=== PATIENT | female | born 1930 | race Caucasian/White ===

== ENCOUNTER 2016-05-16 15:21 | Inpatient (IN) | payer MEDICARE, OTHER ==
[2016-05-16] MEDS ORDERED: ACETAMINOPHEN 325 MG PO ONE (16:49)
[2016-05-16] MEDS ORDERED: HYDRALAZINE HYDROCHLORIDE 20 MG/ML SOL IV PRN (16:50)
[2016-05-16] MEDS: SODIUM CHLORIDE 0.9% 1000ML 1,000 ML IV SCH (17:00)
[2016-05-16 17:07] LABS: BASOPHILS % (AUTO) 0 % (0-3); EOSINOPHILS % (AUTO) 2 % (0-9); HEMATOCRIT 49 % (35-47); MEAN CORPUSCULAR HGB CONC 33.1 gm/dl (32.0-36.0); MEAN CORPUSCULAR VOLUME 85 fL (81-99); NEUTROPHILS % (AUTO) 78.3 % (37-80)
[2016-05-16 17:13] LABS: CALCIUM 8.9 mg/dl (8.5-10.1); POTASSIUM 3.9 mMol/L (3.5-5.1)
[2016-05-16] MEDS ORDERED: WARFARIN SODIUM 5 MG TAB PO SCH (18:15)
[2016-05-16] MEDS ORDERED: LABETALOL HYDROCHLORIDE 5 MG/ML SOL IV PRN ×3 (18:35→19:39)
[2016-05-16] MEDS ORDERED: OSELTAMIVIR PHOSPHATE 75 MG CAP PO ONE (20:00)
[2016-05-16] MEDS: CITALOPRAM 20 MG TAB PO SCH (20:47)
[2016-05-16] MEDS: HYDRALAZINE HCL 25 MG TAB PO SCH (20:52)
[2016-05-16] MEDS ORDERED: AMOXIL/CLAVULANATE 875/125 TAB PO SCH (21:00)
[2016-05-16] MEDS ORDERED: AUGMENTIN(FRIDGE) 400 MG/5 ML PO SCH (21:15)
[2016-05-16] MEDS: ALPRAZOLAM 0.25 MG TAB PO PRN (22:11)
[2016-05-16] MEDS ORDERED: ONDANSETRON HCL 4 MG TAB PO PRN (22:17)
[2016-05-17] MEDS: ACETAMINOPHEN 500 MG 500 MG TAB PO PRN ×2 (01:03→18:15)
[2016-05-17] MEDS: SODIUM CHLORIDE 0.9% 1000ML 1,000 ML IV SCH (01:08)
[2016-05-17] MEDS: LEVOTHYROXINE SODIUM 50 MCG TAB PO SCH (06:05)
[2016-05-17 07:23] LABS: CALCIUM 8.1 mg/dl (8.5-10.1); POTASSIUM 3.1 mMol/L (3.5-5.1)
[2016-05-17 07:27] LABS: BASOPHILS % (AUTO) 0 % (0-3); EOSINOPHILS % (AUTO) 1 % (0-9); HEMATOCRIT 44 % (35-47); MEAN CORPUSCULAR HGB CONC 34.4 gm/dl (32.0-36.0); MEAN CORPUSCULAR VOLUME 85 fL (81-99); MONOCYTES % (AUTO) 15.1 % (0-12); NEUTROPHILS % (AUTO) 66.6 % (37-80)
[2016-05-17] MEDS ORDERED: POTASSIUM CHLORIDE 2 MEQ/ML 40 MEQ, LIDOCAINE HCL 1% MDV 2 ML in SODIUM CHLORIDE 0.9% 5... IV ONE (08:16)
[2016-05-17] MEDS ORDERED: HYDRALAZINE HYDROCHLORIDE 10 MG TAB ONE (08:49)
[2016-05-17] MEDS: DILTIAZEM ER 120 MG C24 PO SCH (08:53)
[2016-05-17] MEDS: HYDRALAZINE HCL 25 MG TAB PO SCH (08:55)
[2016-05-17] MEDS: LOVASTATIN 10 MG TAB PO SCH (08:55)
[2016-05-17] MEDS: FUROSEMIDE 40 MG TAB PO SCH (08:56)
[2016-05-17] MEDS: POTASSIUM CHLORIDE 10 MEQ TER PO SCH (08:57)
[2016-05-17] MEDS ORDERED: POTASSIUM CHLORIDE 20 MEQ PO SCH (09:00)
[2016-05-17] MEDS ORDERED: POTASSIUM CHLORIDE 2 MEQ/ML SOL IV ONE (09:31)
[2016-05-17] MEDS ORDERED: LIDOCAINE HCL 1% MPF SOL ONE (09:31)
[2016-05-17] MEDS: ALBUTEROL NEB SOL 2.5MG/3ML 1 VIAL SOL NEB PRN ×2 (09:37→21:27)
[2016-05-17] MEDS: OSELTAMIVIR PHOSPHATE 75 MG CAP PO SCH ×3 (09:50→21:23)
[2016-05-17 09:59] LABS: APPEARANCE,URINE Clear; BILIRUBIN,URINE NEGATIVE (NEGATIVE); COLOR,URINE Yellow; GLUCOSE, URINE (UA) NEGATIVE (NEGATIVE); KETONES,URINE NEGATIVE (NEGATIVE); LEUKOCYTE ESTERASE ,URINE NEGATIVE (NEGATIVE); NITRATE,URINE NEGATIVE (NEGATIVE); OCCULT BLOOD,URINE NEGATIVE (NEG-TRACE); UROBILINOGEN,URINE 0.2 (0.2-1.0 EU)
[2016-05-17 10:15] LABS: RBC,URINE 0-1 (0-3AV/HPF); WBC,URINE 0-2 (0-5AV/HPF)
[2016-05-17] MEDS ORDERED: WARFARIN SODIUM 5 MG TAB PO SCH (18:00)
[2016-05-17] MEDS: HYDRALAZINE HYDROCHLORIDE 10 MG TAB PO SCH (21:20)
[2016-05-17] MEDS: CITALOPRAM 20 MG TAB PO SCH (21:22)
[2016-05-17] MEDS: ALPRAZOLAM 0.25 MG TAB PO PRN (21:27)
[2016-05-18] MEDS: LEVOTHYROXINE SODIUM 50 MCG TAB PO SCH (06:31)
[2016-05-18 07:36] LABS: BASOPHILS % (AUTO) 1 % (0-3); EOSINOPHILS % (AUTO) 2 % (0-9); HEMATOCRIT 48 % (35-47); MEAN CORPUSCULAR HGB CONC 32.7 gm/dl (32.0-36.0); MEAN CORPUSCULAR VOLUME 86 fL (81-99); MONOCYTES % (AUTO) 13.3 % (0-12); NEUTROPHILS % (AUTO) 59.4 % (37-80)
[2016-05-18 07:37] LABS: CALCIUM 8.4 mg/dl (8.5-10.1); POTASSIUM 3.1 mMol/L (3.5-5.1)
[2016-05-18] MEDS: ALBUTEROL NEB SOL 2.5MG/3ML 1 VIAL SOL NEB PRN (08:06)
[2016-05-18] MEDS ORDERED: POTASSIUM CHLORIDE 2 MEQ/ML 60 MEQ, LIDOCAINE HCL 1% MDV 2 ML in SODIUM CHLORIDE 0.9% 1... IV ONE (08:11)
[2016-05-18] MEDS ORDERED: OSELTAMIVIR PHOSPHATE 75 MG CAP PO SCH (09:00)
[2016-05-18] MEDS ORDERED: AMLODIPINE 5 MG TAB PO SCH ×2 (09:00)
[2016-05-18] MEDS: DILTIAZEM ER 120 MG C24 PO SCH (09:02)
[2016-05-18] MEDS: OSELTAMIVIR PHOSPHATE 75 MG CAP PO SCH ×2 (09:02→20:26)
[2016-05-18] MEDS: FUROSEMIDE 40 MG TAB PO SCH (09:03)
[2016-05-18] MEDS: HYDRALAZINE HYDROCHLORIDE 10 MG TAB PO SCH ×2 (09:03→20:23)
[2016-05-18] MEDS: LOVASTATIN 10 MG TAB PO SCH (09:03)
[2016-05-18] MEDS: POTASSIUM CHLORIDE 10 MEQ TER PO SCH (09:03)
[2016-05-18] MEDS: ALBUTEROL NEB SOL 2.5MG/3ML 1 VIAL SOL NEB SCH ×5 (09:28→23:51)
[2016-05-18] MEDS: SODIUM CHLORIDE 0.9% FLUSH 10 ML SOL IV SCH ×4 (09:33→23:51)
[2016-05-18] MEDS: ACETAMINOPHEN 500 MG 500 MG TAB PO PRN (16:38)
[2016-05-18] MEDS ORDERED: WARFARIN SODIUM 2.5 MG TAB PO SCH ×2 (18:00→18:08)
[2016-05-18] MEDS ORDERED: POTASSIUM CHLORIDE 10 MEQ TER PO ONE (19:33)
[2016-05-18] MEDS ORDERED: POTASSIUM CHLORIDE 2 MEQ/ML 20 MEQ, LIDOCAINE HCL 1% MDV 2 ML in SODIUM CHLORIDE 0.9% 2... IV ONE (19:36)
[2016-05-18] MEDS ORDERED: LIDOCAINE HCL 1% MPF SOL ONE (20:02)
[2016-05-18] MEDS ORDERED: POTASSIUM CHLORIDE 2 MEQ/ML SOL IV ONE (20:02)
[2016-05-18] MEDS: CITALOPRAM 20 MG TAB PO SCH (20:25)
[2016-05-18] MEDS: ALPRAZOLAM 0.25 MG TAB PO PRN (20:27)
[2016-05-18] MEDS: TIMOLOL MALEAT RIGHTEYE SCH (21:00)
[2016-05-18] MEDS: [UNRECOGNIZED DRUG - OTHER] RIGHTEYE SCH (21:00)
[2016-05-18] MEDS: DORZOLAMIDE HCL RIGHTEYE SCH (21:00)
[2016-05-19] MEDS: SODIUM CHLORIDE 0.9% FLUSH 10 ML SOL IV SCH ×3 (01:16→18:58)
[2016-05-19] MEDS: ALBUTEROL NEB SOL 2.5MG/3ML 1 VIAL SOL NEB SCH ×2 (04:49→09:10)
[2016-05-19] MEDS: LEVOTHYROXINE SODIUM 50 MCG TAB PO SCH (06:17)
[2016-05-19 07:22] LABS: BASOPHILS % (AUTO) 1 % (0-3); EOSINOPHILS % (AUTO) 2 % (0-9); HEMATOCRIT 44 % (35-47); MEAN CORPUSCULAR HGB CONC 33.6 gm/dl (32.0-36.0); MEAN CORPUSCULAR VOLUME 86 fL (81-99); NEUTROPHILS % (AUTO) 71.3 % (37-80)
[2016-05-19 07:29] LABS: CALCIUM 8.2 mg/dl (8.5-10.1); POTASSIUM 3.5 mMol/L (3.5-5.1)
[2016-05-19] MEDS: POTASSIUM CHLORIDE 10 MEQ TER PO SCH (09:46)
[2016-05-19] MEDS: HYDRALAZINE HYDROCHLORIDE 10 MG TAB PO SCH ×2 (09:48→21:12)
[2016-05-19] MEDS: OSELTAMIVIR PHOSPHATE 75 MG CAP PO SCH ×2 (09:51→21:13)
[2016-05-19] MEDS: LOVASTATIN 10 MG TAB PO SCH (09:52)
[2016-05-19] MEDS: FUROSEMIDE 40 MG TAB PO SCH (09:53)
[2016-05-19] MEDS: DORZOLAMIDE HCL RIGHTEYE SCH ×2 (09:53→21:14)
[2016-05-19] MEDS: TIMOLOL MALEAT RIGHTEYE SCH ×2 (09:53→21:14)
[2016-05-19] MEDS: [UNRECOGNIZED DRUG - OTHER] RIGHTEYE SCH ×2 (09:53→21:14)
[2016-05-19] MEDS: TRAVOPROST SOL RIGHTEYE SCH ×2 (09:56→21:15)
[2016-05-19] MEDS: DILTIAZEM ER 120 MG C24 PO SCH (09:58)
[2016-05-19] MEDS: PANTOPRAZOLE SODIUM 40 MG ECT PO SCH (10:01)
[2016-05-19] MEDS ORDERED: ALBUTEROL NEB SOL 2.5MG/3ML 1 VIAL SOL NEB PRN (10:02)
[2016-05-19] MEDS: ALBUTEROL/IPRATROPIUM 1 VIAL SOL INH SCH ×3 (10:02→21:10)
[2016-05-19] MEDS: SOLUMEDROL 125 MG/2 ML 125 MG/2 ML PDS IV SCH ×2 (10:30→21:14)
[2016-05-19] MEDS ORDERED: WARFARIN SODIUM 5 MG TAB PO SCH (18:00)
[2016-05-19] MEDS: CITALOPRAM 20 MG TAB PO SCH (21:12)
[2016-05-19] MEDS: ALPRAZOLAM 0.25 MG TAB PO PRN (21:13)
[2016-05-20] MEDS: SODIUM CHLORIDE 0.9% FLUSH 10 ML SOL IV SCH ×2 (04:56→09:17)
[2016-05-20] MEDS: ALBUTEROL/IPRATROPIUM 1 VIAL SOL INH SCH ×2 (05:05→08:55)
[2016-05-20] MEDS: LEVOTHYROXINE SODIUM 50 MCG TAB PO SCH (05:10)
[2016-05-20 07:18] LABS: CALCIUM 8.6 mg/dl (8.5-10.1); POTASSIUM 3.3 mMol/L (3.5-5.1)
[2016-05-20 08:11] VITALS: BP 153/78; TEMP 96.8
[2016-05-20] MEDS: OSELTAMIVIR PHOSPHATE 75 MG CAP PO SCH (08:43)
[2016-05-20] MEDS: DILTIAZEM ER 120 MG C24 PO SCH (08:43)
[2016-05-20] MEDS: POTASSIUM CHLORIDE 10 MEQ TER PO SCH (08:43)
[2016-05-20] MEDS: FUROSEMIDE 40 MG TAB PO SCH (08:44)
[2016-05-20] MEDS: LOVASTATIN 10 MG TAB PO SCH (08:44)
[2016-05-20] MEDS: PANTOPRAZOLE SODIUM 40 MG ECT PO SCH (08:44)
[2016-05-20] MEDS: TIMOLOL MALEAT RIGHTEYE SCH (08:49)
[2016-05-20] MEDS: DORZOLAMIDE HCL RIGHTEYE SCH (08:49)
[2016-05-20] MEDS: HYDRALAZINE HYDROCHLORIDE 10 MG TAB PO SCH (08:49)
[2016-05-20] MEDS: [UNRECOGNIZED DRUG - OTHER] RIGHTEYE SCH (08:49)
[2016-05-20] MEDS: SOLUMEDROL 125 MG/2 ML 125 MG/2 ML PDS IV SCH (09:07)
[2016-05-20 09:17] VITALS: PULSE 81; RESP 20
[2016-05-20 12:12] VITALS: O2SAT 91
== END 2016-05-20 11:30 | disposition swing bed (61) | DRG 194 ==
LOC: ED 15:21 → UNDOADMIN 17:06 → ACUTE CARE 17:06 → UNDODISIN 05-20 11:40
PROVIDERS: ADMIT Emergency Medicine; ATTEND Emergency Medicine
PROC: F01ZDFZ Gait and/or Balance Assessment using Assistive, Adaptive, Supportive or Protective Equipment (ICD-10-PCS; principal; 2016-05-18)
PROC: F01ZBZZ Bed Mobility Assessment (ICD-10-PCS; 2016-05-18)
PROC: F01ZCZZ Transfer Assessment (ICD-10-PCS; 2016-05-18)
PROC: F02Z1ZZ Dressing Assessment (ICD-10-PCS; 2016-05-18)
PROC: F02Z3ZZ Grooming/Personal Hygiene Assessment (ICD-10-PCS; 2016-05-18)
PROC: F02Z2ZZ Feeding/Eating Assessment (ICD-10-PCS; 2016-05-18)
DX: J09.X2 Influenza due to identified novel influenza A virus with other respiratory manifestations (principal); I16.9 Hypertensive crisis, unspecified; I48.91 Unspecified atrial fibrillation; Z79.01 Long term (current) use of anticoagulants; R35.0 Frequency of micturition; E87.6 Hypokalemia; R53.1 Weakness; R09.02 Hypoxemia
CPT/HCPCS: 36415; 71010; 71020; 80048; 81001; 84132; 85025; 85610; 87804; 94150; 94640; 94762; 96365; 99221; 99283; J0360; J2930; J3480; J7603; J7620; J2001

== ENCOUNTER 2016-05-20 10:27 | Inpatient (IN) | payer MEDICARE, OTHER ==
[2016-05-20] MEDS ORDERED: ACETAMINOPHEN 500 MG 500 MG TAB PO PRN (11:24)
[2016-05-20] MEDS ORDERED: MAGNESIUM HYDROXIDE 30 ML SUS PO PRN (11:24)
[2016-05-20] MEDS ORDERED: WARFARIN SODIUM 5 MG TAB PO SCH ×2 (11:30→18:00)
[2016-05-20] MEDS: ALBUTEROL/IPRATROPIUM 1 VIAL SOL INH SCH ×2 (15:05→19:45)
[2016-05-20] MEDS: METOPROLOL TARTRATE 5 MG/5 ML SOL IV PRN ×2 (15:43→17:32)
[2016-05-20] MEDS ORDERED: LISINOPRIL 5 MG TAB PO SCH (18:40)
[2016-05-20] MEDS: DORZOLAMIDE/TIMOLOL 200 DROP SOL RIGHTEYE SCH (21:06)
[2016-05-20] MEDS: CITALOPRAM 20 MG TAB PO SCH (21:07)
[2016-05-20] MEDS: HYDRALAZINE HCL 25 MG TAB PO SCH (21:07)
[2016-05-20] MEDS: POTASSIUM CHLORIDE 10 MEQ TER PO SCH (21:09)
[2016-05-20] MEDS: OSELTAMIVIR PHOSPHATE 75 MG CAP PO SCH (21:10)
[2016-05-20] MEDS: TRAVOPROST SOL RIGHTEYE SCH (21:12)
[2016-05-20] MEDS: ALPRAZOLAM 0.25 MG TAB PO PRN (21:25)
[2016-05-20] MEDS ORDERED: PATIENT EDUCATION 1 MISC PRN (21:36)
[2016-05-20] MEDS: SODIUM CHLORIDE 0.9% FLUSH 10 ML SOL IV SCH (21:55)
[2016-05-21] MEDS: ALBUTEROL/IPRATROPIUM 1 VIAL SOL INH SCH ×4 (02:31→21:24)
[2016-05-21] MEDS: SODIUM CHLORIDE 0.9% FLUSH 10 ML SOL IV SCH ×3 (06:25→21:24)
[2016-05-21] MEDS: LEVOTHYROXINE SODIUM 50 MCG TAB PO SCH (06:25)
[2016-05-21] MEDS: DILTIAZEM ER 120 MG C24 PO SCH (08:49)
[2016-05-21] MEDS: PANTOPRAZOLE SODIUM 40 MG ECT PO SCH (08:50)
[2016-05-21] MEDS: LOVASTATIN 10 MG TAB PO SCH (08:50)
[2016-05-21] MEDS: FUROSEMIDE 40 MG TAB PO SCH (08:50)
[2016-05-21] MEDS: OSELTAMIVIR PHOSPHATE 75 MG CAP PO SCH (08:50)
[2016-05-21] MEDS: DORZOLAMIDE/TIMOLOL 200 DROP SOL RIGHTEYE SCH ×2 (08:51→21:23)
[2016-05-21] MEDS: HYDRALAZINE HYDROCHLORIDE 10 MG TAB PO SCH ×2 (09:32→21:21)
[2016-05-21] MEDS: PREDNISONE 20 MG TAB PO SCH (09:32)
[2016-05-21] MEDS: LOSARTAN POTASSIUM 50 MG TAB PO SCH (09:32)
[2016-05-21] MEDS: POTASSIUM CHLORIDE 10 MEQ TER PO SCH ×2 (09:32→21:23)
[2016-05-21] MEDS: HYDRALAZINE HCL 25 MG TAB PO SCH (09:46)
[2016-05-21] MEDS ORDERED: WARFARIN SODIUM 2.5 MG TAB PO SCH ×2 (11:24→18:00)
[2016-05-21] MEDS ORDERED: ONDANSETRON 4 MG ODT BU PRN (14:33)
[2016-05-21] MEDS: CITALOPRAM 20 MG TAB PO SCH (21:22)
[2016-05-21] MEDS: TRAVOPROST SOL RIGHTEYE SCH (21:24)
[2016-05-21] MEDS: ALPRAZOLAM 0.25 MG TAB PO PRN (21:37)
[2016-05-22] MEDS: ALBUTEROL/IPRATROPIUM 1 VIAL SOL INH SCH ×4 (06:04→21:58)
[2016-05-22] MEDS: LEVOTHYROXINE SODIUM 50 MCG TAB PO SCH (06:52)
[2016-05-22] MEDS: SODIUM CHLORIDE 0.9% FLUSH 10 ML SOL IV SCH (06:53)
[2016-05-22] MEDS: HYDRALAZINE HYDROCHLORIDE 10 MG TAB PO SCH ×2 (08:05→21:57)
[2016-05-22] MEDS: DILTIAZEM ER 120 MG C24 PO SCH (08:05)
[2016-05-22] MEDS: LOSARTAN POTASSIUM 50 MG TAB PO SCH (08:06)
[2016-05-22] MEDS: POTASSIUM CHLORIDE 10 MEQ TER PO SCH ×2 (08:06→21:56)
[2016-05-22] MEDS: DORZOLAMIDE/TIMOLOL 200 DROP SOL RIGHTEYE SCH ×2 (08:06→21:57)
[2016-05-22] MEDS: LOVASTATIN 10 MG TAB PO SCH (08:07)
[2016-05-22] MEDS: PREDNISONE 20 MG TAB PO SCH (08:07)
[2016-05-22] MEDS: FUROSEMIDE 40 MG TAB PO SCH (08:07)
[2016-05-22] MEDS: PANTOPRAZOLE SODIUM 40 MG ECT PO SCH (08:08)
[2016-05-22] MEDS: ALPRAZOLAM 0.25 MG TAB PO PRN (21:56)
[2016-05-22] MEDS: TRAVOPROST SOL RIGHTEYE SCH (21:56)
[2016-05-22] MEDS: CITALOPRAM 20 MG TAB PO SCH (21:57)
[2016-05-23] MEDS: ALBUTEROL/IPRATROPIUM 1 VIAL SOL INH SCH ×4 (02:45→22:15)
[2016-05-23] MEDS: LEVOTHYROXINE SODIUM 50 MCG TAB PO SCH (07:15)
[2016-05-23] MEDS ORDERED: PREDNISONE 20 MG TAB PO SCH (09:00)
[2016-05-23] MEDS: POTASSIUM CHLORIDE 10 MEQ TER PO SCH ×2 (09:24→22:17)
[2016-05-23] MEDS: DILTIAZEM ER 120 MG C24 PO SCH (09:24)
[2016-05-23] MEDS: FUROSEMIDE 40 MG TAB PO SCH (09:25)
[2016-05-23] MEDS: LOSARTAN POTASSIUM 50 MG TAB PO SCH (09:25)
[2016-05-23] MEDS: LOVASTATIN 10 MG TAB PO SCH (09:26)
[2016-05-23] MEDS: PANTOPRAZOLE SODIUM 40 MG ECT PO SCH (09:27)
[2016-05-23] MEDS: HYDRALAZINE HYDROCHLORIDE 10 MG TAB PO SCH ×2 (09:28→22:16)
[2016-05-23] MEDS: DORZOLAMIDE/TIMOLOL 200 DROP SOL RIGHTEYE SCH ×2 (09:29→22:20)
[2016-05-23] MEDS: PREDNISONE 20 MG TAB PO SCH (11:34)
[2016-05-23] MEDS ORDERED: WARFARIN SODIUM 2.5 MG TAB PO ONE (18:00)
[2016-05-23] MEDS: SODIUM CHLORIDE 5% RIGHTEYE SCH ×2 (19:05→22:20)
[2016-05-23] MEDS: CITALOPRAM 20 MG TAB PO SCH (22:18)
[2016-05-23] MEDS: TRAVOPROST SOL RIGHTEYE SCH (22:20)
[2016-05-23] MEDS: DOCUSATE SODIUM 100 MG SGL PO PRN (22:56)
[2016-05-24] MEDS: ALBUTEROL/IPRATROPIUM 1 VIAL SOL INH SCH ×4 (02:46→21:34)
[2016-05-24] MEDS: LEVOTHYROXINE SODIUM 50 MCG TAB PO SCH (06:29)
[2016-05-24] MEDS: FUROSEMIDE 40 MG TAB PO SCH (10:49)
[2016-05-24] MEDS: DORZOLAMIDE/TIMOLOL 200 DROP SOL RIGHTEYE SCH ×2 (10:50→21:33)
[2016-05-24] MEDS: LOSARTAN POTASSIUM 50 MG TAB PO SCH (10:50)
[2016-05-24] MEDS: HYDRALAZINE HYDROCHLORIDE 10 MG TAB PO SCH ×2 (10:51→21:31)
[2016-05-24] MEDS: PANTOPRAZOLE SODIUM 40 MG ECT PO SCH (10:51)
[2016-05-24] MEDS: DILTIAZEM ER 120 MG C24 PO SCH (10:51)
[2016-05-24] MEDS: LOVASTATIN 10 MG TAB PO SCH (10:51)
[2016-05-24] MEDS: PREDNISONE 20 MG TAB PO SCH (10:58)
[2016-05-24] MEDS: POTASSIUM CHLORIDE 10 MEQ TER PO SCH ×2 (10:59→21:33)
[2016-05-24] MEDS: SODIUM CHLORIDE 5% RIGHTEYE SCH ×4 (11:04→21:34)
[2016-05-24] MEDS: WARFARIN SODIUM 2.5 MG TAB PO SCH (18:20)
[2016-05-24] MEDS: CITALOPRAM 20 MG TAB PO SCH (21:32)
[2016-05-24] MEDS: TRAVOPROST SOL RIGHTEYE SCH (21:34)
[2016-05-24] MEDS: DOCUSATE SODIUM 100 MG SGL PO PRN (21:35)
[2016-05-25] MEDS: ALBUTEROL/IPRATROPIUM 1 VIAL SOL INH SCH ×4 (02:59→20:35)
[2016-05-25] MEDS: LEVOTHYROXINE SODIUM 50 MCG TAB PO SCH (06:13)
[2016-05-25] MEDS: HYDRALAZINE HYDROCHLORIDE 10 MG TAB PO SCH ×2 (09:00→20:39)
[2016-05-25] MEDS: DILTIAZEM ER 120 MG C24 PO SCH (09:01)
[2016-05-25] MEDS: DORZOLAMIDE/TIMOLOL 200 DROP SOL RIGHTEYE SCH ×2 (09:01→20:34)
[2016-05-25] MEDS: LOSARTAN POTASSIUM 50 MG TAB PO SCH (09:02)
[2016-05-25] MEDS: POTASSIUM CHLORIDE 10 MEQ TER PO SCH ×2 (09:04→20:40)
[2016-05-25] MEDS: LOVASTATIN 10 MG TAB PO SCH (09:04)
[2016-05-25] MEDS: FUROSEMIDE 40 MG TAB PO SCH (09:04)
[2016-05-25] MEDS: PANTOPRAZOLE SODIUM 40 MG ECT PO SCH (09:05)
[2016-05-25] MEDS: PREDNISONE 20 MG TAB PO SCH (09:05)
[2016-05-25] MEDS: SODIUM CHLORIDE 5% RIGHTEYE SCH ×4 (09:05→20:39)
[2016-05-25] MEDS: WARFARIN SODIUM 2.5 MG TAB PO SCH (18:31)
[2016-05-25] MEDS: TRAVOPROST SOL RIGHTEYE SCH (20:38)
[2016-05-25] MEDS: CITALOPRAM 20 MG TAB PO SCH (20:41)
[2016-05-26] MEDS: ALBUTEROL/IPRATROPIUM 1 VIAL SOL INH SCH ×4 (02:07→20:29)
[2016-05-26] MEDS: ALPRAZOLAM 0.25 MG TAB PO PRN ×2 (04:40→23:15)
[2016-05-26] MEDS: LEVOTHYROXINE SODIUM 50 MCG TAB PO SCH (06:41)
[2016-05-26] MEDS: HYDRALAZINE HYDROCHLORIDE 10 MG TAB PO SCH ×2 (09:02→20:34)
[2016-05-26] MEDS: DILTIAZEM ER 120 MG C24 PO SCH (09:03)
[2016-05-26] MEDS: DORZOLAMIDE/TIMOLOL 200 DROP SOL RIGHTEYE SCH ×2 (09:04→20:34)
[2016-05-26] MEDS: LOSARTAN POTASSIUM 50 MG TAB PO SCH (09:04)
[2016-05-26] MEDS: POTASSIUM CHLORIDE 10 MEQ TER PO SCH ×2 (09:06→20:36)
[2016-05-26] MEDS: FUROSEMIDE 40 MG TAB PO SCH (09:06)
[2016-05-26] MEDS: LOVASTATIN 10 MG TAB PO SCH (09:07)
[2016-05-26] MEDS: PREDNISONE 20 MG TAB PO SCH (09:07)
[2016-05-26] MEDS: PANTOPRAZOLE SODIUM 40 MG ECT PO SCH (09:08)
[2016-05-26] MEDS: SODIUM CHLORIDE 5% RIGHTEYE SCH ×4 (09:08→20:33)
[2016-05-26] MEDS: WARFARIN SODIUM 2.5 MG TAB PO SCH (18:11)
[2016-05-26] MEDS: TRAVOPROST SOL RIGHTEYE SCH (20:29)
[2016-05-26] MEDS: CITALOPRAM 20 MG TAB PO SCH (20:35)
[2016-05-26 23:21] VITALS: RESP 20
[2016-05-27] MEDS: ALBUTEROL/IPRATROPIUM 1 VIAL SOL INH SCH ×2 (02:34→08:14)
[2016-05-27] MEDS: LEVOTHYROXINE SODIUM 50 MCG TAB PO SCH (06:26)
[2016-05-27 07:54] VITALS: BP 168/99; TEMP 98
[2016-05-27] MEDS: HYDRALAZINE HYDROCHLORIDE 10 MG TAB PO SCH (08:05)
[2016-05-27] MEDS: DORZOLAMIDE/TIMOLOL 200 DROP SOL RIGHTEYE SCH (08:06)
[2016-05-27] MEDS: POTASSIUM CHLORIDE 10 MEQ TER PO SCH (08:06)
[2016-05-27] MEDS: LOSARTAN POTASSIUM 50 MG TAB PO SCH (08:06)
[2016-05-27] MEDS: DILTIAZEM ER 120 MG C24 PO SCH (08:06)
[2016-05-27] MEDS: LOVASTATIN 10 MG TAB PO SCH (08:07)
[2016-05-27] MEDS: PANTOPRAZOLE SODIUM 40 MG ECT PO SCH (08:07)
[2016-05-27] MEDS: SODIUM CHLORIDE 5% RIGHTEYE SCH (08:07)
[2016-05-27] MEDS: FUROSEMIDE 40 MG TAB PO SCH (08:07)
[2016-05-27 08:20] VITALS: PULSE 62; O2SAT 99
[2016-05-27] MEDS ORDERED: PREDNISONE 20 MG TAB PO SCH (09:00)
[2016-05-30] MEDS ORDERED: PREDNISONE 10 MG TAB PO SCH (09:00)
== END 2016-05-27 10:40 | disposition home or self-care (01) | DRG 195 ==
LOC: ACUTE CARE 11:35
PROVIDERS: ADMIT Emergency Medicine; ATTEND Emergency Medicine
PROC: F02Z1ZZ Dressing Assessment (ICD-10-PCS; principal; 2016-05-20)
PROC: F02Z0ZZ Bathing/Showering Assessment (ICD-10-PCS; 2016-05-20)
PROC: F02Z3ZZ Grooming/Personal Hygiene Assessment (ICD-10-PCS; 2016-05-20)
PROC: F01ZDFZ Gait and/or Balance Assessment using Assistive, Adaptive, Supportive or Protective Equipment (ICD-10-PCS; 2016-05-20)
PROC: F01ZBZZ Bed Mobility Assessment (ICD-10-PCS; 2016-05-20)
PROC: F01ZCZZ Transfer Assessment (ICD-10-PCS; 2016-05-20)
DX: J09.X2 Influenza due to identified novel influenza A virus with other respiratory manifestations (principal); I48.2 Chronic atrial fibrillation; J44.9 Chronic obstructive pulmonary disease, unspecified; R53.1 Weakness; Z79.01 Long term (current) use of anticoagulants; I10 Essential (primary) hypertension
CPT/HCPCS: 36415; 85610; 94640; J7620

== ENCOUNTER 2016-09-23 04:22 | Emergency (ER) | payer MEDICARE, OTHER ==
[2016-09-23] MEDS ORDERED: KETOROLAC TROMETHAMINE 30 MG/ML SOL IV ONE (04:30)
[2016-09-23] MEDS ORDERED: APAP/HYDROCODONE 325/5 TAB PO ONE (04:30)
[2016-09-23] MEDS ORDERED: APAP/HYDROCODONE 325/5 TAB ONE (04:31)
[2016-09-23] MEDS ORDERED: KETOROLAC TROMETHAMINE 30 MG/ML SOL ONE (04:32)
[2016-09-23] MEDS ORDERED: MORPHINE SULFATE 10 MG/ML SOL IV ONE (05:14)
[2016-09-23] MEDS ORDERED: MORPHINE SULFATE 10 MG/ML SOL ONE (05:15)
[2016-09-23 06:39] VITALS: BP 157/78; PULSE 74; RESP 16; TEMP 98.5; O2SAT 94
== END 2016-09-23 08:21 | disposition home or self-care (01) | DRG 93 ==
LOC: ED 04:22
DX: G89.29 Other chronic pain (principal); M25.512 Pain in left shoulder
CPT/HCPCS: 96374; 96375; 99283; 99284; J1885; J2270

== ENCOUNTER 2016-10-10 13:37 | Emergency (ER) | payer MEDICARE, OTHER ==
[2016-10-10 14:00] VITALS: RESP 20
[2016-10-10] MEDS ORDERED: KETOROLAC TROMETHAMINE 30 MG/ML SOL IM ONE (14:13)
[2016-10-10] MEDS ORDERED: KETOROLAC TROMETHAMINE 30 MG/ML SOL ONE (14:34)
[2016-10-10 14:37] VITALS: BP 144/69; PULSE 71; TEMP 97.6; O2SAT 94
== END 2016-10-10 16:10 | disposition home or self-care (01) | DRG 554 ==
LOC: ED 13:37
DX: M19.012 Primary osteoarthritis, left shoulder (principal); Z79.01 Long term (current) use of anticoagulants; Z01.812 Encounter for preprocedural laboratory examination
CPT/HCPCS: 36415; 85610; 96372; 99283; J1885

== ENCOUNTER 2016-10-11 08:43 | Day surgery (SDC) | payer MEDICARE, OTHER ==
[~2016-10-11 08:43] MED LIST: LIDOCAINE HCL 1% MPF SOL ONE; PROPOFOL 500 MG/50 ML EMU IV ONE
[2016-10-11 10:32] VITALS: RESP 18
[2016-10-11] MEDS ORDERED: KETOROLAC TROMETHAMINE 30 MG/ML SOL ONE (10:47)
[2016-10-11 10:55] VITALS: BP 161/76; PULSE 76; TEMP 97.4; O2SAT 95
== END 2016-10-11 11:25 | disposition home or self-care (01) | DRG 392 ==
LOC: SURG 08:43
PROVIDERS: ATTEND Surgery
DX: R11.0 Nausea (principal); K22.710 Barrett's esophagus with low grade dysplasia; K31.89 Other diseases of stomach and duodenum
CPT/HCPCS: J1885; J2001; J2704

== ENCOUNTER 2016-11-08 15:00 | Outpatient (CLI) | payer MEDICARE, OTHER ==
[2016-10-11 10:55] VITALS: O2SAT 95
== END 2016-11-08 15:01 | disposition home or self-care (01) | DRG 556 ==
LOC: CONVCARE 15:00
PROVIDERS: ATTEND Orthopaedic Surgery
DX: M25.512 Pain in left shoulder (principal)
CPT/HCPCS: 87070; 87075; 87205

== ENCOUNTER 2018-03-18 11:55 | Emergency (ER) | payer MEDICARE, OTHER ==
[2018-03-18 11:55] VITALS: O2SAT 95
[2018-03-18] MEDS: EPINEPHRINE HCL 0.1 MG/ML SOL IV PRN ×4 (11:55→12:05)
[2018-03-18 12:24] LABS: HEMOGLOBIN 11.3 gm/dl (12.0-15.5); MEAN CORPUSCULAR HEMOGLOBIN 27.3 pg (27.0-32.0); MEAN CORPUSCULAR HGB CONC 29.8 gm/dl (32.0-36.0)
[2018-03-18 12:35] LABS: BILIRUBIN,TOTAL 0.6 mg/dl (0.2-1.0); CALCIUM 8.5 mg/dl (8.5-10.1); CARBON DIOXIDE 22.5 mEq/L (21-32); CREATININE 1.31 mg/dl (0.60-1.00); POTASSIUM 4.3 mMol/L (3.5-5.1); TOTAL PROTEIN 6.2 gm/dl (6.4-8.2); TROP I 0.041 ng/ml (0.000-0.056)
[2018-03-18] MEDS ORDERED: SODIUM BICARBONATE 8.4%(ADULT) 1 MEQ/ML SOL IV ONE ×2 (13:06→16:05)
[2018-03-18] MEDS ORDERED: SODIUM CHLORIDE 0.9% FLUSH 10 ML SOL IV PRN (13:06)
[2018-03-18] MEDS ORDERED: CALCIUM CHLORIDE 100 MG/ML SOL IV ONE ×2 (13:07→16:05)
[2018-03-18] MEDS ORDERED: SODIUM CHLORIDE 0.9% 1000ML 1,000 ML IV SCH (13:15)
[2018-03-18] MEDS ORDERED: EPINEPHRINE 1:10,000 PREFILL 0.1 MG/ML SOL ONE (16:04)
== END 2018-03-18 12:13 | disposition expired | DRG 298 ==
LOC: ED 11:55
DX: I46.9 Cardiac arrest, cause unspecified (principal)
CPT/HCPCS: 36415; 80053; 84484; 85027; 96365; 96374; 96375; 99291; J3490